=== PATIENT | female | born 1955 | race Caucasian/White ===

== ENCOUNTER → 2018-02-19 10:36 | Outpatient (CLI) | payer BC, SELFPAY ==
--- NOTE | 2018-02-19 10:38 | BI_ITS ---
MAMMOGRAPHY - BILATERAL SCREENING REASON FOR EXAM: Female, 62 years old. Routine annual screening examination. PERTINENT HISTORY: Sister with breast cancer. Aunt with breast cancer. Remote right excisional breast biopsy. Occasional left lateral breast tenderness. TECHNIQUE: Digital bilateral breast dayanara (3D mammographic acquisition) in the CC and MLO projections. 2-D mediolateral oblique (MLO) and craniocaudad (CC) views of both breasts were obtained. CAD: Full Field Digital Mammography with Computer Added Detection was performed. COMPARISON: Comparison is made with prior study dated January 29, 2017 and January 28, 2016. FINDINGS: Breast Composition: There are scattered areas of fibroglandular density. There are no dominant masses or suspicious calcifications. No other significant abnormalities are identified. There has been no significant change since the prior study. BI/SCREENING MAMM (CAD), BILAT IMPRESSION: Stable bilateral screening mammogram. Yearly follow-up mammogram recommended. (A) ASSESSMENT CATEGORY: BIRADS Category 2: Benign. A letter regarding these results will be sent to the patient by the facility within 30 days. Approximately 10% of breast cancers are not detected by mammography. A normal mammogram should not delay biopsy of a clinically suspicious abnormality. [id number] Electronically Signed: Cliff Pollard MD at 13:43 EDT Tel [phone], Service support ,
== END ==
PROVIDERS: Family Provider Family Medicine; PCP Family Medicine; Visit Provider Family Medicine
DX: Z12.31 Encounter for screening mammogram for malignant neoplasm of breast (principal)
CPT/HCPCS: 77063; 77067

== ENCOUNTER → 2018-03-14 09:57 | Outpatient (CLI) | payer BC, SELFPAY ==
[2018-03-14 12:15] LABS: Anion Gap 8 (5-15); BUN 12 mg/dL (7-18); BUN/Creat Ratio 14.3 RATIO (10-20); Calcium,Total 8.8 mg/dL (8.5-10.1); Chloride 108 mmol/L (98-107); Cholesterol 151 mg/dL (200); Creatinine, Serum 0.84 mg/dL (0.55-1.02); EST Glomerular Filtration Rate 73 mL/min (>60); Est Glom Filt Rate - Afr Amer 88 mL/min (>60); Glucose 94 mg/dL (74-106); High Density Lipoprotein 57 mg/dL; Potassium 3.8 mmol/L (3.5-5.1); Sodium Level 143 mmol/L (136-145); Triglycerides 94 mg/dL; Very Low Density Lipoprotein 19 mg/dL (5-40)
== END ==
PROVIDERS: Family Provider Family Medicine; PCP Family Medicine; Visit Provider Family Medicine
DX: I10 Essential (primary) hypertension (principal); E78.00 Pure hypercholesterolemia, unspecified
CPT/HCPCS: 36415; 80048; 80061

== ENCOUNTER → 2019-02-19 12:11 | Outpatient (CLI) | payer BC, SELFPAY ==
[2019-02-19 14:54] LABS: Absolute Lymphocyte Count 1.94 X10^3/uL (0.83-4.51); Absolute Neutrophil Count 2.3 X10^3/uL (2.0-7.7); Basophil# 0.05 X10^3/uL; Eosinophil# 0.19 X10^3/uL; Hemoglobin 15.1 g/dL (12.0-15.0); Lymphocyte # 1.94 X10^3/ul (4.0); Lymphocyte % 40.6 % (19-41); Mean Corp Hgb Conc 33.6 g/dL (32-36); Mean Corpuscular Hgb 32.3 pg (27.0-32.0); Mean Corpuscular Volume 96.4 fL (81-99); Mean Platelet Vol. 11.2 fl (6.2-12.0); Monocyte# 0.34 X10^3/uL; Monocyte% 7.1 % (0-10); NRBC Flagged by Analyzer 0 % (0-5); Neutrophil # 2.25 X10^3/uL (2.7-7.7); Neutrophil % 47.1 % (47-70); Platelet Count 213 K/mm3 (150-450); RBC Distribution Width CV 12.8 % (11.6-14.6); RBC Distribution Width SD 45.1 fl (35.1-43.9); Red Blood Count 4.67 M/mm3 (4.2-5.4); White Blood Count 4.8 K/mm3 (4.4-11.0)
[2019-02-19 15:14] LABS: Vitamin D,25 Hydroxy 26.6 ng/mL (29.95-100.01)
[2019-02-19 15:17] LABS: Anion Gap 7 (5-15); BUN 11 mg/dL (7-18); BUN/Creat Ratio 13.8 RATIO (10-20); Calcium,Total 8.8 mg/dL (8.5-10.1); Chloride 109 mmol/L (98-107); Cholesterol 144 mg/dL (200); EST Glomerular Filtration Rate 77 mL/min (>60); Est Glom Filt Rate - Afr Amer 93 mL/min (>60); Glucose 90 mg/dL (74-106); High Density Lipoprotein 58 mg/dL; Sodium Level 144 mmol/L (136-145); Thyroid Stim Hormone (TSH) 2.27 uIU/mL (0.358-3.74); Triglycerides 69 mg/dL; Very Low Density Lipoprotein 14 mg/dL (5-40)
== END ==
PROVIDERS: Family Provider Family Medicine; PCP Family Medicine; Visit Provider Family Medicine
DX: I10 Essential (primary) hypertension (principal); R53.83 Other fatigue; I67.9 Cerebrovascular disease, unspecified; M85.80 Other specified disorders of bone density and structure, unspecified site
CPT/HCPCS: 36415; 80048; 80061; 82306; 84443; 85025

== ENCOUNTER → 2019-03-11 12:23 | Outpatient (CLI) | payer BC, SELFPAY ==
--- NOTE | 2019-03-11 12:26 | BI_ITS ---
MAMMOGRAPHY - BILATERAL SCREENING 3-D TOMOSYNTHESIS REASON FOR EXAM: Female, 63 years old. Bilateral Screening 3-D tomosynthesis PERTINENT HISTORY: Sister and maternal aunt with breast cancer.. TECHNIQUE: 2-D mammograms and 3-D Tomosynthesis of the breast (s) were performed. CAD was performed. COMPARISON: 02/19/2018, 01/29/2017. FINDINGS: The breast composition is composed of scattered fibroglandular density. Scattered benign calcifications are seen. No dense spiculated masses or suspicious microcalcifications are identified. No architectural distortion is identified. There is no skin thickening or retraction. There has been no significant change since the prior study. BI/SCREEN MAMM (CAD) W/PER BILAT IMPRESSION: No mammographic signs of malignancy. Routine yearly mammograms recommended. ASSESSMENT CATEGORY: BIRADS Category 2: Benign. A letter regarding these results will be sent to the patient by the facility within 30 days. FOLLOW UP RECOMMENDATION: Yearly follow up mammogram recommended. (A) Approximately 10% of breast cancers are not detected by mammography. A normal mammogram should not delay biopsy of a clinically suspicious abnormality. Electronically Signed: Lexx Apple MD at 15:27 EDT Tel [phone], Service support ,
== END ==
PROVIDERS: Family Provider Family Medicine; PCP Family Medicine; Referring Provider Family Medicine; Visit Provider Family Medicine
DX: Z12.31 Encounter for screening mammogram for malignant neoplasm of breast (principal); M85.80 Other specified disorders of bone density and structure, unspecified site; Z80.3 Family history of malignant neoplasm of breast
CPT/HCPCS: 77063; 77067

== ENCOUNTER → 2019-03-19 09:56 | Outpatient (CLI) | payer BC, SELFPAY ==
--- NOTE | 2019-03-19 10:03 | BD_ITS ---
STUDY: DUAL ENERGY X-RAY ABSORPTIOMETRY / DXA REASON FOR EXAM: Female, 63 years old. The patient is postmenopausal. Loss of height. TECHNIQUE: Bone Mineral Density (BMD) measurements of lumbar spine and bilateral hips were obtained. COMPARISON: Comparison is made with prior study dated December 31, 2014. FINDINGS: Lumbar Spine (L1-L4): g/cm2 (1.051) / T-score (-1.1) / Z-score (0.4) Findings are suggestive of osteopenia with a low fracture risk. Left Femur Total: g/cm2 (0.817) / T-score (-1.5) / Z-score (-0.4) Left Femoral Neck: g/cm2 (0.749) / T-score (-2.1) / Z-score (-0.7) Right Femur Total: g/cm2 (0.825) / T-score (-1.5) / Z-score (-0.4) Right Femoral Neck: g/cm2 (0.756) / T-score (-2.0) / Z-score (-0.7) The T-Scores on the most recent prior examination were: Lumbar Spine (L1-L4): There has been improvement of bone density since the previous examination. Left Femur Total: which represents an improvement of 0.1%. Right Femur Total: which represents a worsening of 4.4%. BD/Dexa Bone Density Study IMPRESSION: The patient is considered osteopenic as outlined below according to World [place] Organization (WHO) criteria with a moderate fracture risk. There has been improvement of bone density since the previous examination. Reference Information: The T-score is the number of standard deviations above or below the standard which is normal for young adults at their peak bone mineral density. The World Health Organization (WHO) interprets the T-scores as follows: Above -1 Normal bone density Between -1 and -2.5 Osteopenia Equal to / or below -2.5 Osteoporosis As a practical clinical guideline, osteopenia may be graded as follows: Mild -1 through -1.5 Moderate -1.6 through -2.0 Severe -2.1 through -2.4 The Z-score is the number of standard deviations above or below age-matched controls. A Z-score of less than -1.5 would be considered abnormal. References: 1. NIH Osteoporosis and Related Bone Diseases http://www.osteo.org 2. International Society for Clinical Densitometry http://www.iscd.org 3. National Osteoporosis Foundation http://www.nof.org Electronically Signed: Cliff Pollard, at 15:24 EDT , Service support ,
== END ==
PROVIDERS: Family Provider Family Medicine; PCP Family Medicine; Referring Provider Family Medicine; Visit Provider Family Medicine
DX: M85.80 Other specified disorders of bone density and structure, unspecified site (principal)
CPT/HCPCS: 77080

== ENCOUNTER → 2020-02-03 10:28 | Outpatient (CLI) | payer BC, SELFPAY ==
[2020-02-03 13:21] LABS: Vitamin D,25 Hydroxy 35.5 ng/mL
[2020-02-03 13:36] LABS: Anion Gap 7 (5-15); BUN 12 mg/dL (7-18); BUN/Creat Ratio 16.2 RATIO (10-20); Calcium,Total 8.5 mg/dL (8.5-10.1); Chloride 106 mmol/L (98-107); Cholesterol 155 mg/dL (200); Creatinine, Serum 0.74 mg/dL (0.55-1.02); EST Glomerular Filtration Rate 84 mL/min (>60); Est Glom Filt Rate - Afr Amer 102 mL/min (>60); Glucose 82 mg/dL (74-106); High Density Lipoprotein 53 mg/dL; Potassium 3.5 mmol/L (3.5-5.1); Sodium Level 141 mmol/L (136-145); Triglycerides 82 mg/dL; Very Low Density Lipoprotein 16 mg/dL (5-40)
== END ==
PROVIDERS: PCP Family Medicine; Referring Provider Family Medicine; Visit Provider Family Medicine
DX: E55.9 Vitamin D deficiency, unspecified (principal); I10 Essential (primary) hypertension
CPT/HCPCS: 36415; 80048; 80061; 82306

== ENCOUNTER → 2020-04-02 10:02 | Outpatient (CLI) | payer BC, SELFPAY ==
--- NOTE | 2020-04-02 10:47 | BI_ITS ---
MAMMOGRAPHY - BILATERAL SCREENING REASON FOR EXAM: Female, 64 years old. Routine annual screening examination. PERTINENT HISTORY: Sister with breast cancer. Aunt with breast cancer. TECHNIQUE: Digital bilateral breast per (3D mammographic acquisition) in the CC and MLO projections. 2-D mediolateral oblique (MLO) and craniocaudad (CC) views of both breasts were obtained. CAD: Full Field Digital Mammography with Computer Added Detection was performed. COMPARISON: Comparison is made with prior examination dated 03/11/2019 and 02/19/2018. FINDINGS: Breast Composition: There are scattered areas of fibroglandular density. There are no dominant masses or suspicious calcifications. Stable small benign appearing bilateral axillary lymph nodes. No other significant abnormalities are identified. There has been no significant change since the prior study. BI/SCREEN MAMM (CAD) W/PER BILAT IMPRESSION: Stable bilateral screening mammogram. Yearly follow-up mammogram recommended. (A) ASSESSMENT CATEGORY: BIRADS Category 2: Benign. A letter regarding these results will be sent to the patient by the facility within 30 days. Approximately 10% of breast cancers are not detected by mammography. A normal mammogram should not delay biopsy of a clinically suspicious abnormality. [id number] Electronically Signed: Cliff Pollard, at 11:58 EDT , Service support ,
== END ==
PROVIDERS: PCP Family Medicine; Referring Provider Family Medicine; Visit Provider Family Medicine
DX: Z12.31 Encounter for screening mammogram for malignant neoplasm of breast (principal); Z80.3 Family history of malignant neoplasm of breast
CPT/HCPCS: 77063; 77067

== ENCOUNTER 2020-05-02 19:17 | Observation (INO) | payer BC, SELFPAY ==
[2020-05-02 19:18] VITALS: BP 154/103; PULSE 51; RESP 18; TEMP 36.2; O2SAT 96; BMI 27.7
--- NOTE | 2020-05-02 19:27 | EKG12_ITS ---
Test Reason : CP Blood Pressure : / mmHG Vent. Rate : 051 BPM Atrial Rate : 051 BPM P-R Int : 156 ms QRS Dur : 082 ms QT Int : 466 ms P-R-T Axes : 040 -14 -15 degrees QTc Int : [address] & T wave abnormality, consider anterior ischemia Abnormal ECG Confirmed by CHERI ROCHA, GRACIELA ([id number]), digital editor DEYSI CHAUDHARY ([id number]) on 05/04/2020 12:54:46 PM Referred By: MARTA Confirmed By:GRACIELA ALONZO MD
--- NOTE | 2020-05-02 19:27 | RAD_ITS ---
STUDY: X-RAY CHEST REASON FOR EXAM: Female, 64 years old. Chest pain radiating through shoulders as well, started today. TECHNIQUE: Single AP portable view of the chest. 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 The lungs are clear and expanded. There is no demonstrated pleural abnormality. Normal size heart. Normal mediastinum and elizabeth. Normal visualized pulmonary arteries. There are calcified plaques of the aortic arch. Normal visualized thoracic spine. Normal visualized ribs, clavicles, and shoulders. There is no demonstrated abnormality of the visualized soft tissue structures of the upper abdomen. RAD/Chest 1 View (Portable) IMPRESSION: Calcified plaques of the aortic arch. No acute cardiopulmonary disease process is seen. Electronically Signed: Maicol Carlos MD at 19:58 EDT , Service support ,
--- NOTE | 2020-05-02 19:29 | ED.VIS.GEN ---
History of Present Illness Chief Complaint: Chest Pain Informant: Patient Onset: Today Context: Sudden Onset Current Severity: Mild Maximum Severity: Severe Narrative: Patient presents secondary to chest pain. She states she was cooking dinner tonight when she got rather sudden onset of substernal sharp chest pain straight through to her back. She went and sat down and drank a glass of water and symptoms seem to significantly improved. She reports very mild pain at this time. She denies shortness of breath. She did reportedly break out in a sweat, but family does state it was very damage prevention coordinator there as well. Patient denies significant cardiac history. She does report having a cardiac cath several years ago that was unremarkable. - Past Medical History (1) CVA (cerebral vascular accident) Status: Chronic Past Medical History - Allergies and Home Meds Allergies/Adverse Reactions: Allergies No Known Allergies Allergy (Verified 05/02/20 19:18) Primary Care Physician: Kayode Lin MD [Primary Care Provider] - Lives: Spouse/ Significant Other Smoking Status: Never smoker Review of Systems General: Denies: Chills, Fever Eyes: Denies: Visual changes - bilaterally ENT: Denies: Bilateral ear pain Cardiovascular: Reports: Chest pain Respiratory: Denies: Dyspnea, Cough Gastrointestinal: Denies: Abdominal pain, Nausea, Vomiting, Diarrhea Musculoskeletal: Denies: Swelling, Extremity Pain Skin: Denies: Rash Neurological: Denies: Headache Hematologic: Denies: Easy bruising, Easy bleeding Allergy: Denies: Uticaria Physical Exam Vital Signs/Narrative: Vital Signs Temp Pulse Resp BP Pulse Ox 05/02/20 19:18 97.1 F L 51 L 18 154/103 H 96 Inital Vital Signs reviewed: Yes General: Well nourished, Well developed Head: Normocephalic ENT: Moist mucous membranes Neck: Supple Cardiovascular: Regular rhythm, Bradycardia Respiratory: No distress, CTA bilaterally Abdomen: Soft, Nontender, Hypoactive bowel sounds Extremities: Nontender, No edema Skin: Normal color Neurological: Alert, Oriented x3 Psychological: Normal affect Diagnostic/Tx/Re-eval Impressions Chest X-Ray 05/02/20 19:27 IMPRESSION: Calcified plaques of the aortic arch. No acute cardiopulmonary disease process is seen. Electronically Signed: Maicol Carlos MD at 19:58 EDT , Service support , Chest CTA 05/02/20 20:38 IMPRESSION: 1. No pulmonary embolism 2. No acute vascular thoracic pathology. Electronically Signed: Raysa Palacio, at 21:24 EDT Tel , Service support , 05/02/20 19:27 Chest 1 View (Portable) [RAD] Stat 05/02/20 20:38 CTA Chest W/WO Contrast [CT] Stat Laboratory Results 05/02/20 05/02/20 05/02/20 15:25 15:25 15:25 WBC 8.7 RBC 4.51 Hgb 14.5 Hct 44.1 MCV 97.8 MCH 32.2 H MCHC 32.9 RDW Std Deviation 46.6 H RDW Coeff of Radha 13.1 Plt Count 233 MPV 10.4 Immature Gran % (Auto) 0.300 Neut % (Auto) 55.3 Lymph % (Auto) 32.3 [place]ke % (Auto) 7.9 Eos % (Auto) 3.7 Baso % (Auto) 0.5 Absolute Neuts (auto) 4.8 Absolute Lymphs (auto) 2.82 Nucleated RBC % 0 D-Dimer Quant (PE/DVT) 1.01 H* Sodium 139 Potassium 3.6 Chloride 108 H Carbon Dioxide 25.0 Anion Gap 6 BUN 16 Creatinine 0.85 Estim Creat Clear Calc 55.31 Est GFR (MDRD) Af Amer 87 Est GFR (MDRD) Non-Af 72 BUN/Creatinine Ratio 18.9 Glucose 115 H Calcium 8.3 L Troponin I < 0.015 - EKG Initial EKG Interpretation: Sinus Bradycardia - Sinus bradycardia with anterior T inversions. This is unchanged when compared to prior study from November 2006. - Medical Decision Making Patient did take full size aspirin prior to arrival. Test results discussed with patient and at bedside. She does have significant family history of cardiac disease. I will recommend observation overnight for cycling of enzymes and possible stress test. ED Disposition - Plan for ED Patient: Disposition: Acute Care Hospital [facility] Diagnosis: Chest pain Referrals: Kayode Lin MD [Primary Care Provider] -
[2020-05-02] MEDS: 0.9% Normal Saline 1,000 ML 150 ML IV (19:50)
[2020-05-02 19:54] LABS: Absolute Lymphocyte Count 2.82 X10^3/uL (0.83-4.51); Absolute Neutrophil Count 4.8 X10^3/uL (2.0-7.7); Basophil# 0.04 X10^3/uL; Basophil% 0.5 % (0-1); Eosinophil# 0.32 X10^3/uL; Eosinophils% 3.7 % (0-5); Hematocrit 44.1 % (37-47); Hemoglobin 14.5 g/dL (12.0-15.0); Lymphocyte # 2.82 X10^3/ul (4.0); Lymphocyte % 32.3 % (19-41); Mean Corp Hgb Conc 32.9 g/dL (32-36); Mean Corpuscular Hgb 32.2 pg (27.0-32.0); Mean Corpuscular Volume 97.8 fL (81-99); Mean Platelet Vol. 10.4 fl (6.2-12.0); Monocyte# 0.69 X10^3/uL; Monocyte% 7.9 % (0-10); NRBC Flagged by Analyzer 0 % (0-5); Neutrophil # 4.83 X10^3/uL (2.7-7.7); Neutrophil % 55.3 % (47-70); Platelet Count 233 K/mm3 (150-450); RBC Distribution Width CV 13.1 % (11.6-14.6); RBC Distribution Width SD 46.6 fl (35.1-43.9); Red Blood Count 4.51 M/mm3 (4.2-5.4); White Blood Count 8.7 K/mm3 (4.4-11.0)
[2020-05-02 20:04] LABS: Anion Gap 6 (5-15); BUN 16 mg/dL (7-18); BUN/Creat Ratio 18.9 RATIO (10-20); Calcium,Total 8.3 mg/dL (8.5-10.1); Chloride 108 mmol/L (98-107); Creatinine, Serum 0.85 mg/dL (0.55-1.02); EST Glomerular Filtration Rate 72 mL/min (>60); Est Glom Filt Rate - Afr Amer 87 mL/min (>60); Estimated Creatinine Clearance 55.31 ml/min; Glucose 115 mg/dL (74-106); Potassium 3.6 mmol/L (3.5-5.1); Sodium Level 139 mmol/L (136-145)
[2020-05-02 20:29] LABS: D-Dimer Quantitative (DVT/PE) 1.01 FEU/ug/m (0.27-0.49)
--- NOTE | 2020-05-02 20:38 | CT_ITS ---
STUDY: CTA CHEST REASON FOR EXAM: Female, 64 years old. Chest pain asthma RADIATION DOSAGE (If Supplied By Facility): CTDIvol = ( 9.91 ) mGy, DLP = ( 381.88 ) mGycm TECHNIQUE: The examination was performed with the intravenous administration of IV 100mL Isovue-370. Post-processing of the angiographic images was performed, with multiplanar reformation and 3D reconstruction. Individualized dose optimization techniques were used for this CT. COMPARISON: None. FINDINGS: There is no acute or chronic pulmonary embolism. Aorta is of normal caliber. Lungs are clear. There is no pneumothorax, pulmonary edema or pleural effusions. Mediastinal contents are normal. Osseous structures are intact. Abdominal structures are unremarkable. CT/CTA Chest W/WO Contrast IMPRESSION: 1. No pulmonary embolism 2. No acute vascular thoracic pathology. Electronically Signed: Raysa Palacio, at 21:24 EDT Tel , Service support ,
--- NOTE | 2020-05-02 22:06 | PCM.HP.STD ---
Problem List (1) Chest pain Status: Acute Qualifiers: Chest pain type: unspecified Qualified Code(s): R07.9 - Chest pain, unspecified (2) HTN (hypertension) Status: Chronic Qualifiers: Hypertension type: essential hypertension Qualified Code(s): I10 - Essential (primary) hypertension (3) Anxiety and depression Status: Chronic (4) GERD (gastroesophageal reflux disease) Status: Chronic Qualifiers: Esophagitis presence: esophagitis presence not specified Qualified Code(s): K21.9 - Gastro-esophageal reflux disease without esophagitis (5) Asthma Status: Chronic Qualifiers: Asthma severity: unspecified severity Asthma persistence: unspecified Asthma complication type: unspecified Qualified Code(s): J45.909 - Unspecified asthma, uncomplicated (6) CVA (cerebral vascular accident) Status: Chronic Qualifiers: CVA mechanism: unspecified Qualified Code(s): I63.9 - Cerebral infarction, unspecified (7) Hearing loss of both ears Status: Chronic Qualifiers: Hearing loss type: unspecified Qualified Code(s): H91.93 - Unspecified hearing loss, bilateral (8) Speech abnormality Status: Chronic Qualifiers: Speech disturbance type: unspecified speech disturbance Qualified Code(s): R47.9 - Unspecified speech disturbances History of Present Illness Date of Admission: 05/02/20 Chief Complaint: Chest pain The patient is a 64 y/o F w/ PMHx: Asthma, Hx CVA without deficits, Anxiety and Depression, HTN, HLD, GERD who presents to the [facility] ED on 05/02/20 with history of onset severe, stabbing like sensation to her substernal chest and between her shoulder blades ~ 45 minutes [employer] in the ED with some associated diaphoresis but improved following rest and intake of water. She noted that she been at the stove making dinner with sudden onset of the pain and described it as both sharp stabbing and pressure-like. She did have a recent asthma attack approximately 2 weeks prior to current presentation and noted that she finished her last dose of her prednisone taper on day of ED presentation. Patient notes minimal pain initially upon arrival and now back to baseline without any pain aside from very minimal aching in her back between her shoulder blades. She had remote cardiac catheterization with no disease noted. Work-up in the ED included T 97.1, heart rate 51, BP 154/103, respiratory rate 18, 96% on room air, CBC with WBC 8.7, hemoglobin 14.5, platelet 233 without shift, d-dimer 1.01, BMP with chloride 108, glucose 115, troponin less than 0.015, chest x-ray with calcified plaques of the aortic arch with no acute cardiopulmonary findings otherwise, CTPA with no evidence pulmonary embolism and no acute vascular thoracic pathology, EKG w/ sinus bradycardia with anterior T inversions unchanged from November 2006. In the ED patient administered normal saline. Patient did take a full-strength aspirin prior to ED presentation. Past Medical History Past Medical History (Chronic Problems): Chronic Problems CVA (cerebral vascular accident) (Chronic) HTN (hypertension) (Chronic) Anxiety and depression (Chronic) GERD (gastroesophageal reflux disease) (Chronic) Asthma (Chronic) Hearing loss of both ears (Chronic) Speech abnormality (Chronic) Allergies No Known Allergies Allergy (Verified 05/02/20 19:18) Home Medications: Ambulatory Orders Medication Instructions Recorded Amlodipine [Norvasc] 5 mg PO DAILY 05/02/20 Aspirin 325 mg PO DAILY 05/02/20 Atorvastatin Calcium [Lipitor] 20 mg PO QHS 05/02/20 Duloxetine HCl 60 mg PO DAILY 05/02/20 Metoprolol Tartrate 25 mg PO BID 05/02/20 Pantoprazole Sodium 40 mg PO DAILY 05/02/20 Surgical History: - - Breast biopsy. Psychiatric History: No pertinent psych hx TELEPHONE TRIAGE NURSE History: No pertinent TELEPHONE TRIAGE NURSE history Lives: Spouse/ Significant Other Smoking Status: Never smoker Tobacco Use: Non-smoker Alcohol: Occasional Drugs: None - *Family History Maternal History Items: High Cholesterol, Heart Disease, Hypertension Paternal History Items: - - Father with a history of inclusion body myositis as well as thyroid cancer. Sibling History Items: - - Patient notes several brothers and sisters with her youngest brother having already required PCI for coronary disease and 2 sisters 1 of whom has breast cancer and the other who has thyroid cancer. Review of Systems Constitutional: Reports: Fatigue. Denies: Anorexia, Chills, Fever, Malaise, Weakness, Weight Change HEENT: Denies: Head Aches, Sinus Congestion, Sinus Drainage Cardiovascular: Reports: Chest Pain, Chest Pressure. Denies: Chest Tightness, Heaviness, Light Headedness, Orthopnea, Palpitations, Syncope Respiratory: Reports: - - History of recent asthma attack 2 weeks earlier, resolved.. Denies: Cough, Shortness of Breath, Shortness of breath at rest, Shortness of breath upon exertion, Sputum production Gastrointestinal: Denies: Abdominal Pain, Nausea, Vomiting Genitourinary: Denies: Dysuria Musculoskeletal: Denies: Joint Pain, Joint Tenderness Skin: Denies: Rash, Wounds Neurological: Reports: - - History of prior CVA without deficits.. Denies: Focal weakness, Numbness, Tingling Psychiatric: Denies: Anxiety, Depression, Homicidal Ideations, Suicidal Ideations Endocrine: Reports: - - Diaphoresis. Hematologic/ Lymphatic: Denies: Easy Bruising, Easy Bleeding VTE Information - Inpt Only VTE Present on Admission: No VTE Mechan Device Prophylaxis: SCD's VTE Pharm Prophylaxis ordered?: Yes Patient Problems: Active and Suspected Problems Chest pain (Acute) Subjective: Patient seated upright in the ED bed, mildly fatigued appearance otherwise no acute distress, speech alteration secondary to hearing deficit with hearing aids in place. Objective: Physical Examination: General: awake, alert, oriented x 3 and cooperative, seated upright in the ED bed, no acute distress, discomfort nearly resolved. Skin: normal color, turgor, no icterus, cyanosis. HEENT: AT/NC, EOMI, PERRLA, MMM, bilateral hearing aids in place with speech alteration chronically, no carotid bruits or JVD noted. Lungs: CTA bilaterally, moderate effort, mild decrease BL bases, no rales, ronchi or wheezing. Heart: Mildly bradycardic with regular rhythm; no gallop, rub audible, no reproducible pain with palpation of the anterior chest or between the shoulder blades. Abdomen: soft, NTTP, ND, normal BS, no HSM. Extremities: no cyanosis, clubbing, or edema. Neurological: patient awake, alert, oriented x 3; cognitive function intact; pupils equally reactive to light and accomodation; cranial nerves II-XII grossly normal, moving all 4 extremities, no focal deficits, strength preserved. Psychiatric: affect appears mildly fatigued otherwise normal, no acute evidence of depressive or anxiety feelings. - Physical Exam Vitals/I&O's: Vital Signs Temp Pulse Resp BP Pulse Ox 97.1 F L 51 L 18 154/103 H 96 05/02/20 19:18 05/02/20 19:18 05/02/20 19:18 05/02/20 19:18 05/02/20 19:18 Oxygen Delivery Method Room Air Weight: 156 lb 8.451 oz Body Mass Index (BMI) 27.7 Laboratory Results 05/02/20 15:25: WBC 8.7, RBC 4.51, Hgb 14.5, Hct 44.1, MCV 97.8, MCH 32.2 H, MCHC 32.9, RDW Std Deviation 46.6 H, RDW Coeff of Radha 13.1, Plt Count 233, MPV 10.4, Immature Gran % (Auto) 0.300, Neut % (Auto) 55.3, Lymph % (Auto) 32.3, [place] % (Auto) 7.9, Eos % (Auto) 3.7, Baso % (Auto) 0.5, Absolute Neuts (auto) 4.8, Absolute Lymphs (auto) 2.82, Nucleated RBC % 0 05/02/20 15:25: Sodium 139, Potassium 3.6, Chloride 108 H, Carbon Dioxide 25.0, Anion Gap 6, BUN 16, Creatinine 0.85, Estim Creat Clear Calc 55.31, Est GFR (MDRD) Af Amer 87, Est GFR (MDRD) Non-Af 72, BUN/Creatinine Ratio 18.9, Glucose 115 H, Calcium 8.3 L, Troponin I < 0.015 05/02/20 15:25: D-Dimer Quant (PE/DVT) 1.01 H* Current Medications Sodium Chloride () 1,000 mls @ 150 mls/hr IV .[id number] [facility] Last Admin: 05/02/20 19:50 Dose: 150 mls/hr Documented by: Assessment/Plan All Active Problems Chest pain (Acute) The patient is a 64 y/o F w/ PMHx: Hx CVA, Anxiety and Depression, HTN, HLD, GERD who presents to the [facility] ED on 05/02/20 with history of onset severe, stabbing like sensation to her substernal chest and between her shoulder blades ~ 45 minutes [employer] in the ED with some associated diaphoresis but improved following rest and intake of water. 1. Chest Pain: EKG w/ sinus bradycardia with anterior T inversions unchanged from November 2006, CXR w/ no acute cardiopulmonary findings with follow-up CTPA unremarkable, initial trop normal x1. Will admit to PCU, place on a monitored bed to assure no acute myocardial infarction with serial cardiac enzymes and EKGs. If repeat cardiac enzymes and EKG remain unremarkable will pursue a.m. cardiac stress testing. FLP in AM. Mag pending. ASA, NG, morphine. 2. Hypertension: Continue home regimen including metoprolol, Norvasc, PRN hydralazine. 3. Hyperlipidemia: We will continue home statin therapy, FLP in AM. 4. Anxiety and depression: We will continue patient home duloxetine regimen. 5. History CVA: No deficits associated, we will continue patient aspirin, statin, hypertensive regimen. 6. GERD: We will continue patient home PPI. 7. Asthma: PRN albuterol, encourage head of bed, I-S, recent exacerbation with prednisone taper recently finished on day of ED presentation. 8. DVT prophylaxis: SCDs, Lovenox. OBSV E&M: [id number] Initial observation care L3
[2020-05-02 22:08] VITALS: BP 150/88; PULSE 50; RESP 16; O2SAT 94
[2020-05-02 22:41] VITALS: BP 149/94; PULSE 50; RESP 14; TEMP 36.2; O2SAT 96
[2020-05-02 23:06] VITALS: PULSE 53; BMI 26.5; BMI 26.6
--- NOTE | 2020-05-02 23:12 | EKG12_ITS ---
Test Reason : CP Blood Pressure : / mmHG Vent. Rate : 048 BPM Atrial Rate : 048 BPM P-R Int : 154 ms QRS Dur : 084 ms QT Int : 490 ms P-R-T Axes : 035 -18 005 degrees QTc Int : 437 ms Sinus bradycardia Non-specific ST & T wave changes Abnormal ECG When compared with ECG of 05-DEC-2006 15:50, No significant change was found Confirmed by ROBIN ROCHA, CHESTER ([id number]), editorial project manager RICO MARQUEZ ([id number]) on 05/05/2020 11:29:05 AM Referred By: VIOLETA CARLTON Confirmed By:UZMA KELLY MD
[2020-05-02 23:20] VITALS: BP 172/84; PULSE 56; RESP 18; TEMP 36.8; O2SAT 96
[2020-05-03] VITALS (8 sets, daily range): BP systolic 131; BP diastolic 72–82; PULSE 54–69; RESP 14–18; TEMP 36.6–36.7; O2SAT 92–96
[2020-05-03] MEDS: 0.9% Normal Saline 1,000 ML 100 ML IV
[2020-05-03 00:03] LABS: Magnesium 2.1 mg/dL (1.6-2.6)
[2020-05-03] MEDS: Aspirin 325 MG Tablet PO (05:35)
--- NOTE | 2020-05-03 05:55 | EKG12_ITS ---
Test Reason : AM EKG Blood Pressure : / mmHG Vent. Rate : 052 BPM Atrial Rate : 052 BPM P-R Int : 156 ms QRS Dur : 086 ms QT Int : 478 ms P-R-T Axes : 034 -20 -04 degrees QTc Int : 444 ms Sinus bradycardia Non-specific ST & T wave changes Abnormal ECG When compared with ECG of 02-MAY-2020 23:53, MANUAL COMPARISON REQUIRED, DATA IS UNCONFIRMED Confirmed by ROBIN ROCHA, CHESTER ([id number]), film editor RICO MARQUEZ ([id number]) on 05/05/2020 11:21:48 AM Referred By: DR PEREZ Confirmed By:UZMA KELLY MD
[2020-05-03 06:04] LABS: Absolute Lymphocyte Count 1.98 X10^3/uL (0.83-4.51); Absolute Neutrophil Count 4.3 X10^3/uL (2.0-7.7); Basophil# 0.03 X10^3/uL; Basophil% 0.4 % (0-1); Eosinophil# 0.29 X10^3/uL; Eosinophils% 4.1 % (0-5); Hematocrit 43.3 % (37-47); Hemoglobin 14.1 g/dL (12.0-15.0); Lymphocyte # 1.98 X10^3/ul (4.0); Lymphocyte % 27.7 % (19-41); Mean Corp Hgb Conc 32.6 g/dL (32-36); Mean Corpuscular Hgb 31.5 pg (27.0-32.0); Mean Corpuscular Volume 96.7 fL (81-99); Mean Platelet Vol. 10.3 fl (6.2-12.0); Monocyte# 0.56 X10^3/uL; Monocyte% 7.8 % (0-10); NRBC Flagged by Analyzer 0 % (0-5); Neutrophil # 4.27 X10^3/uL (2.7-7.7); Neutrophil % 59.6 % (47-70); Platelet Count 206 K/mm3 (150-450); RBC Distribution Width CV 13.2 % (11.6-14.6); RBC Distribution Width SD 47.3 fl (35.1-43.9); Red Blood Count 4.48 M/mm3 (4.2-5.4); White Blood Count 7.2 K/mm3 (4.4-11.0)
[2020-05-03 06:33] LABS: ALB/GLOB Ratio 1.1 RATIO (0.9-2.4); AST(SGOT) 15 U/L (15-37); Alanine Aminotransfer ALT/SGPT 19 U/L (13-56); Albumin, Serum 3.2 g/dL (3.2-5.0); Alkaline Phosphatase 54 U/L (45-117); Anion Gap 6 (5-15); BUN 9 mg/dL (7-18); Chloride 109 mmol/L (98-107); Cholesterol 158 mg/dL (200); Creatinine, Serum 0.64 mg/dL (0.55-1.02); EST Glomerular Filtration Rate 99 mL/min (>60); Est Glom Filt Rate - Afr Amer 119 mL/min (>60); Estimated Creatinine Clearance 73.46 ml/min; Globulin 2.9 g/dL (2.2-4.2); Glucose 88 mg/dL (74-106); High Density Lipoprotein 65 mg/dL; Potassium 3.5 mmol/L (3.5-5.1); Protein, Total 6.1 g/dL (6.4-8.2); Sodium Level 140 mmol/L (136-145); Triglycerides 70 mg/dL; Very Low Density Lipoprotein 14 mg/dL (5-40)
[2020-05-03] MEDS: amLODIPine 5 MG Tablet PO (10:35)
[2020-05-03] MEDS: Metoprolol Tartrate 25 MG Tablet PO (10:35)
[2020-05-03] MEDS: Pantoprazole Sodium 40 MG Tablet PO (10:35)
[2020-05-03] MEDS: DULoxetine Hcl 60 MG Capsule PO (10:35)
--- NOTE | 2020-05-03 11:56 | DCINST_ITS ---
- Discharge Diagnoses Current Active Problems: Current Active and Chronic Problems Chest pain (Acute) HTN (hypertension) (Chronic) Anxiety and depression (Chronic) GERD (gastroesophageal reflux disease) (Chronic) Asthma (Chronic) Hearing loss of both ears (Chronic) Speech abnormality (Chronic) You will use the following diet at home:: Cardiac Your food should be the consistency of: Regular Discharge Activity: Return to Normal Activity Weight Bearing Status: Weight bearing as tolerated Call your doctor if you observe: Fever of 101 or Higher, Numbness or Tingling, Change in Color, Inability to urinate, Inability to have a bowel movement, Using more than one pad per hour, Shortness of breath, Dizziness, Fainting spells, Swelling in the ankles, Chest pain, Prolonged hiccoughing, Increased palpitations (irregular heartbeat), Calf discomfort, Uncontrolled pain Allergies/Adverse Reactions: Allergies No Known Allergies Allergy (Verified 05/02/20 19:18) Medications to take at Discharge Amlodipine [Norvasc] 5 mg PO DAILY 05/02/20 Aspirin 325 mg PO DAILY 05/02/20 Atorvastatin Calcium [Lipitor] 20 mg PO QHS 05/02/20 Duloxetine HCl 60 mg PO DAILY 05/02/20 Metoprolol Tartrate 25 mg PO BID 05/02/20 Pantoprazole Sodium 40 mg PO DAILY 05/02/20 Primary Care Physician: Kayode Lin MD [Primary Care Provider] - Please follow up with your Primary Care Physician in: IN 2 WEEKS Test Results: Test results from this visit will be discussed in further detail at your follow- up appointment, if applicable.
--- NOTE | 2020-05-03 13:46 | STRESSREP_ITS ---
Stress Test Report Date: 05-03-2020 Procedure: Exercise tolerance test/imaging study Indications: Chest pain Consent: Per the patient Procedure: The patient exercised on a Mello protocol for 7 minutes and 13 seconds completing Stage II and 1 minute and 13 seconds of Stage III achieving a peak heart rate of 155 bpm (99% predicted maximal heart rate) with a peak blood pressure 150/90 mmHg and a peak MET capacity of 9 METs. The baseline ECG demonstrated sinus bradycardia; nonspecific T wave abnormality. The peak exercise ECG demonstrated no obvious ECG changes. There was a rare PVC during exercise and recovery. The functional capacity was considered average. There was vague interscapular discomfort during exercise with spontaneous resolution in recovery. The examination was discontinued secondary to dyspnea. Impression: 1. Technically adequate (percent predicted maximal heart rate greater than 85%) exercise tolerance test 2. Peak exercise ECG with no obvious ECG changes 3. There was a rare PVC during exercise and recovery 4. Nuclear images pending Myocardial perfusion imaging study: Technique: The patient was injected with 11.6 mCi of technetium 99m Cardiolite and subsequently rest SPECT Cardiolite nuclear imaging was obtained in the horizontal long, vertical long, and short axis views. The patient exercised on a Mello protocol for 7 minutes and 13 seconds completing Stage II and 1 minute and 13 seconds of Stage III achieving a peak heart rate of 155 bpm (99% predicted maximal heart rate) with a peak blood pressure 150/90 mmHg and a peak MET capacity of 9 METs. The patient was injected with 36.0 mCi of technetium 99m Cardiolite and subsequently stress SPECT Cardiolite nuclear imaging was obtained in the horizontal long, vertical long, and short axis views. A gated Cardiolite study at peak stress was obtained. Interpretation: Rest and stress SPECT Cardiolite nuclear imaging status post realignment, normal ization, and attenuation correction, demonstrates [the appearance of relative uniform tracer uptake and myocardial perfusion appearing within normal limits]. [There is end systolic thickening and brightening]. The gated Cardiolite study demonstrates [myocardial thickening and inward wall motion]. The reported LVEF is 70%. Impression: 1. Rest and stress SPECT Cardiolite nuclear imaging demonstrate [relative uniform tracer uptake and myocardial perfusion appearing within normal limits]. 2. The gated Cardiolite study reports an LVEF of 70%. This note was generated with [employer] software. It may contain incorrect words, spelling, and punctuation that were not noted in checking the note before signing.
--- NOTE | 2020-05-03 14:38 | PCM.DC.SUM ---
Discharge Date and Diagnosis - Problem List Patient Problems: Active and Suspected Problems Chest pain (Acute) Date of Admission: 05/02/20 Date of Discharge: 05/03/20 - Primary Discharge Diagnosis Acute Problems: Active Problems Chest pain (Acute) - Secondary Discharge Diagnosis Chronic Problems: Chronic Problems CVA (cerebral vascular accident) (Chronic) HTN (hypertension) (Chronic) Anxiety and depression (Chronic) GERD (gastroesophageal reflux disease) (Chronic) Asthma (Chronic) Hearing loss of both ears (Chronic) Speech abnormality (Chronic) Hospital Course and Treatment Imaging Results: 05/03/20 05:55 Nuclear Stress Test - Treadmil [NM] AM (NON MEDS) Summary of Care Provided: The patient is a 64 year old F with history of chronic stable asthma came to ER with chest pain, midsternal with radiation to back for about 45 minutes. She had cardiac cath in remote past and was negative as per the patient. CTPA was negative for any evidence of pulmonary embolism or acute thoracic vessel pathology. Twelve-lead EKG sinus bradycardia with some T inversion in anterior leads, unchanged from November 2006. Patient is recovering from asthma exacerbation and had prednisone taper. She was admitted in PCU. Serial troponin enzymes are negative. Labs reviewed. K3.5 and 1K Dur 40 M EQ was given. Patient further had treadmill nuclear myocardial perfusion test and was negative for acute ischemia. I think, chest pain is mainly musculoskeletal in nature. hall monitor shows sinus rhythm. Rest of the comorbidities hypertension, dyslipidemia, anxiety and depression, GERD chronic stable asthma are well controlled. Fasting profile shows total cholesterol 158, TG 70, LDL 79 and HDL 65. Discharge medication reconciliation done. Discharge follow-up instructions completed. Discharge process discussed with the patient and all questions were answered to patient's satisfaction. Total time spent, exact 35 minutes on discharge meds reconciliation, examination, coordination of care with nurses and ancillary staff, review of imaging and blood test and discussion with the patient on follow-up instructions Patient Problems: Active and Suspected Problems Chest pain (Acute) Objective: Seen and examined. The patient is chest pain-free. No shortness of breath, dizziness or syncope. Patient has history of asthma. She denies recent acid reflux or heartburn although she has history of GERD. She further said she has been lifting her grandkids at home. Patient is non-smoker. At rate and blood pressure are controlled. Physical exam General: Alert, Oriented x3, Cooperative HEENT: Atraumatic, PERRLA, EOMI, Normocephalic Oral: No Gingival or Mucosal Lesions/ Ulcerations Neck: Supple, No JVD, Negative Carotid Bruits Lungs: Air entry equal in bilateral lung bases. No crepitation/rhonchi Cardiovascular: Regular rate, Regular Rhythm, Normal S1, Normal S2, No murmurs Abdomen: Bowel Sounds Present, Soft, Non Tender, Non-Distended : No renal angle tenderness. No suprapubic tenderness. Extremities: No edema, Capillary Refill Less than 3 Seconds Skin: No rashes, No breakdown Musculoskeletal: No Tenderness to Palpation of Joints or Extremities Neurological: Cranial nerves II-XII grossly intact, Deep Tendon Reflexes 2+/4 and Symmetrical, Neuro grossly intact Psych/Mental Status: Normal Affect, Appropriate. - Physical Exam Vitals/I&O's: Vital Signs Temp Pulse Resp BP Pulse Ox 97.9 F 69 18 131/82 H 92 05/03/20 10:30 05/03/20 10:35 05/03/20 10:30 05/03/20 10:35 05/03/20 10:30 Oxygen Delivery Method Room Air Weight: 149 lb 14.629 oz Body Mass Index (BMI) 26.5 Intake and Output for Last 24 Hours 05/01/20 05/02/20 05/03/20 23:59 23:59 23:59 Intake Total 475 / 475 941.67 / 941.67 Balance 475 / 475 941.67 / 941.67 Laboratory Results 05/02/20 15:25: WBC 8.7, RBC 4.51, Hgb 14.5, Hct 44.1, MCV 97.8, MCH 32.2 H, MCHC 32.9, RDW Std Deviation 46.6 H, RDW Coeff of Radha 13.1, Plt Count 233, MPV 10.4, Immature Gran % (Auto) 0.300, Neut % (Auto) 55.3, Lymph % (Auto) 32.3, Ashley % (Auto) 7.9, Eos % (Auto) 3.7, Baso % (Auto) 0.5, Absolute Neuts (auto) 4.8, Absolute Lymphs (auto) 2.82, Nucleated RBC % 0 05/02/20 15:25: Sodium 139, Potassium 3.6, Chloride 108 H, Carbon Dioxide 25.0, Anion Gap 6, BUN 16, Creatinine 0.85, Estim Creat Clear Calc 55.31, Est GFR (MDRD) Af Amer 87, Est GFR (MDRD) Non-Af 72, BUN/Creatinine Ratio 18.9, Glucose 115 H, Calcium 8.3 L, Troponin I < 0.015 05/02/20 15:25: D-Dimer Quant (PE/DVT) 1.01 H* 05/02/20 23:35: Magnesium 2.1, Troponin I < 0.015 05/03/20 02:09: Troponin I < 0.015 05/03/20 05:15: WBC 7.2, RBC 4.48, Hgb 14.1, Hct 43.3, MCV 96.7, MCH 31.5, MCHC 32.6, RDW Std Deviation 47.3 H, RDW Coeff of Radha 13.2, Plt Count 206, MPV 10.3, Immature Gran % (Auto) 0.400, Neut % (Auto) 59.6, Lymph % (Auto) 27.7, Ashley % (Auto) 7.8, Eos % (Auto) 4.1, Baso % (Auto) 0.4, Absolute Neuts (auto) 4.3, Absolute Lymphs (auto) 1.98, Nucleated RBC % 0 05/03/20 05:15: Sodium 140, Potassium 3.5, Chloride 109 H, Carbon Dioxide 25.0, Anion Gap 6, BUN 9, Creatinine 0.64, Estim Creat Clear Calc 73.46, Est GFR (MDRD) Af Amer 119, Est GFR (MDRD) Non-Af 99, BUN/Creatinine Ratio 14.0, Glucose 88, Calcium 8.0 L, Total Bilirubin 0.70, AST 15, ALT 19, Alkaline Phosphatase 54, Troponin I < 0.015, Total Protein 6.1 L, Albumin 3.2, Globulin 2.9, Albumin/Globulin Ratio 1.1, Triglycerides 70, Cholesterol 158, LDL Cholesterol 79, VLDL Cholesterol 14, HDL Cholesterol 65 Current Medications Acetaminophen (Tylenol) 650 mg PO Q6H PRN PRN PRN Reason: Pain Score 1-10/Temp > 100.7 F Al Hydroxide/Mg Hydroxide (Mylanta Ii) 30 ml PO Q6H PRN PRN PRN Reason: Gastric Burning Albuterol Sulfate (Ventolin Aerosols) 2.5 mg INHALATION Q2H PRN PRN PRN Reason: Dyspnea, wheezing Amlodipine Besylate (Norvasc) 5 mg PO DAILY [facility] Last Admin: 05/03/20 10:35 Dose: 5 mg Documented by: [facility] Last Admin: 05/03/20 05:35 Dose: 325 mg Documented by: Duloxetine HCl (Cymbalta) 60 mg PO DAILY [facility] Last Admin: 05/03/20 10:35 Dose: 60 mg Documented by: Enoxaparin Sodium (Lovenox) 40 mg SC DAILY [facility] Last Admin: 05/03/20 10:39 Dose: Not Given Documented by: Guaifenesin (Robitussin) 20 ml PO Q4H PRN PRN PRN Reason: COUGH Sodium Chloride () 250 mls @ 15 mls/hr IV .[id number] PRN PRN Reason: Saline Flush Sodium Chloride () 250 mls @ 15 mls/hr IV .[id number] PRN PRN Reason: Additional IVPB Infusion Magnesium Hydroxide (Milk Of Magnesia) 30 ml PO DAILY PRN PRN PRN Reason: Constipation Melatonin (Melatonin) 3 mg PO QHS PRN PRN PRN Reason: INSOMNIA Metoprolol Tartrate (Lopressor (Beta Soto)) 25 mg PO BID [facility] Last Admin: 05/03/20 10:35 Dose: 25 mg Documented by: Morphine Sulfate () 2 mg IV Q3H PRN PRN PRN Reason: Pain Score 6-10 Nitroglycerin (Nitrostat) 0.4 mg SUBLINGUAL Q5M PRN PRN Reason: CARDIAC/CHEST PAIN Ondansetron HCl (Zofran) 4 mg IV Q8H PRN PRN PRN Reason: NAUSEA/VOMITING Oxycodone HCl (Oxyir) 5 mg PO Q4H PRN PRN PRN Reason: Pain Score 4-5 Pantoprazole Sodium (Protonix) 40 mg PO DAILY [facility] Last Admin: 05/03/20 10:35 Dose: 40 mg Documented by: Prochlorperazine Edisylate (Compazine Iv) 5 mg IV Q4H PRN PRN PRN Reason: Breakthrough Nausea/Vomiting Psyllium Hydrophilic Mucilloid (Metamucil) 1 packet PO DAILY PRN PRN PRN Reason: Constipation Senna/Docusate Sodium (Senokot-S, Romina-Colace) 2 tablet PO BID PRN PRN PRN Reason: Constipation Sodium Chloride () 10 - 40 ml IV UD PRN PRN Reason: SALINE FLUSH Throat Lozenges (Cepacol Sore Throat Lozenge) 1 lozenge MUCOUS MEM Q2H PRN PRN PRN Reason: SORE THROAT Discharge Activity: Return to Normal Activity Weight Bearing Status: Weight bearing as tolerated Call your doctor if you observe: Fever of 101 or Higher, Numbness or Tingling, Change in Color, Inability to urinate, Inability to have a bowel movement, Using more than one pad per hour, Shortness of breath, Dizziness, Fainting spells, Swelling in the ankles, Chest pain, Prolonged hiccoughing, Increased palpitations (irregular heartbeat), Calf discomfort, Uncontrolled pain Home Medications: Medications to take at Discharge Amlodipine [Norvasc] 5 mg PO DAILY 05/02/20 Aspirin 325 mg PO DAILY 05/02/20 Atorvastatin Calcium [Lipitor] 20 mg PO QHS 05/02/20 Duloxetine HCl 60 mg PO DAILY 05/02/20 Metoprolol Tartrate 25 mg PO BID 05/02/20 Pantoprazole Sodium 40 mg PO DAILY 05/02/20 Primary Care Physician: Kayode Lin MD [Primary Care Provider] - Please follow up with your Primary Care Physician in: IN 2 WEEKS Medical Necessity - Tobacco Use Smoking Status: Never smoker Tobacco Use: Non-smoker Meaningful Use Info Meaningful Use Diagnoses (Choose all that apply): None applicable OBSV E&M: 11557 Observation care discharge
== END 2020-05-03 11:56 | disposition home or self-care (01) ==
LOC: ED 21:56 → PCU 22:24
PROVIDERS: Admitting Provider Family Medicine; Emergency Provider Emergency Medicine; PCP Family Medicine; Visit Provider Internal Medicine
DX: R07.89 Other chest pain (principal); Z23 Encounter for immunization; I10 Essential (primary) hypertension; K21.9 Gastro-esophageal reflux disease without esophagitis; J45.909 Unspecified asthma, uncomplicated; F41.9 Anxiety disorder, unspecified; F32.9 Major depressive disorder, single episode, unspecified; R47.9 Unspecified speech disturbances; H91.93 Unspecified hearing loss, bilateral; Z86.73 Personal history of transient ischemic attack (TIA), and cerebral infarction without residual deficits; Z79.899 Other long term (current) drug therapy; Z79.82 Long term (current) use of aspirin; E78.5 Hyperlipidemia, unspecified; R94.31 Abnormal electrocardiogram [ECG] [EKG]; R00.1 Bradycardia, unspecified
CPT/HCPCS: 36415; 71045; 71275; 78452; 80048; 80053; 80061; 83735; 84484; 85025; 85379; 93005; 93017; 96360; 96361; 99218; 99251; 99285; A9500; J7030; Q9967; 90686; A4216; G0378; G0463

== ENCOUNTER 2020-09-30 06:48 | Outpatient (RCR) | payer BC, SELFPAY ==
[2020-05-02 23:06] VITALS: BMI 26.5
[2020-09-30] MEDS: COVID-19 VACC, MRNA(PFIZER)/PF 30 MCG/0.3 ML SYRINGE IM (15:56)
[2020-10-21] MEDS: COVID-19 VACC, MRNA(PFIZER)/PF 30 MCG/0.3 ML SYRINGE IM (15:34)
== END 2020-09-30 23:59 ==
LOC: IMMUN 06:48
PROVIDERS: PCP Family Medicine; Referring Provider Family Medicine; Visit Provider Family Medicine
DX: Z23 Encounter for immunization (principal)
CPT/HCPCS: 0001A; 0002A; 91300

== ENCOUNTER → 2020-11-24 11:35 | Outpatient (CLI) | payer BC, SELFPAY ==
[2020-05-02 23:06] VITALS: BMI 26.5
[2020-11-24 15:33] LABS: Anion Gap 5 (5-15); BUN 13 mg/dL (7-18); BUN/Creat Ratio 15.2 RATIO (10-20); Chloride 106 mmol/L (98-107); Cholesterol 170 mg/dL (200); Creatinine, Serum 0.85 mg/dL (0.55-1.02); EST Glomerular Filtration Rate 71 mL/min (>60); Est Glom Filt Rate - Afr Amer 86 mL/min (>60); Glucose 90 mg/dL (74-106); High Density Lipoprotein 66 mg/dL; Potassium 4.2 mmol/L (3.5-5.1); Sodium Level 141 mmol/L (136-145); Triglycerides 88 mg/dL; Very Low Density Lipoprotein 18 mg/dL (5-40)
[2020-11-24 15:34] LABS: Erythrocyte Sedimentation Rate < 1 mm/hr (0-30)
== END ==
PROVIDERS: PCP Family Medicine; Referring Provider Family Medicine; Visit Provider Family Medicine
DX: I10 Essential (primary) hypertension (principal); M19.90 Unspecified osteoarthritis, unspecified site
CPT/HCPCS: 36415; 80048; 80061; 85652; 86141; 86431

== ENCOUNTER → 2021-04-27 07:56 | Outpatient (CLI) | payer BC, SELFPAY ==
--- NOTE | 2021-04-27 07:58 | BI_ITS ---
MAMMOGRAPHY - BILATERAL SCREENING 3-D TOMOSYNTHESIS REASON FOR EXAM: Female, 65 years old. SCREENING PERTINENT HISTORY: No significant family history. TECHNIQUE: 2-D mammograms and 3-D Tomosynthesis of the breast (s) were performed. CAD was performed. COMPARISON: 04/02/2020 FINDINGS: The breast composition is composed of scattered fibroglandular density. Scattered benign calcifications are seen. 1 cm oval obscured mass in the retroareolar right breast and focal compression views recommend for further evaluation. No dominant mass left breast. No suspicious calcifications.. No architectural distortion is identified. There is no skin thickening or retraction. BI/SCRN MAMM (CAD)W/PER BILAT IMPRESSION: 1 cm oval obscured mass in the retroareolar right breast and focal compression views recommended for further evaluation. ASSESSMENT CATEGORY: BIRADS Category 0: Incomplete. Need additional imaging evaluation as above. A letter regarding these results will be sent to the patient by the facility within 30 days. FOLLOW UP RECOMMENDATION: Additional imaging recommended as above. (E) Approximately 10% of breast cancers are not detected by mammography. A normal mammogram should not delay biopsy of a clinically suspicious abnormality. Electronically Signed: Dmitri Russell MD at 13:08 EDT Tel , Service support ,
== END ==
PROVIDERS: PCP Family Medicine; Visit Provider Family Medicine
DX: Z12.31 Encounter for screening mammogram for malignant neoplasm of breast (principal); N63.10 Unspecified lump in the right breast, unspecified quadrant
CPT/HCPCS: 77063; 77067

== ENCOUNTER → 2021-04-29 14:26 | Outpatient (CLI) | payer BC, SELFPAY ==
--- NOTE | 2021-04-29 14:27 | US_ITS ---
STUDY: ULTRASOUND BREAST - RIGHT REASON FOR EXAM: Female, 65 years old. Abnormal screening mammogram TECHNIQUE: Axial and longitudinal images of the RIGHT breast were performed with a high resolution ultrasound transducer. # OF IMAGES: 15 COMPARISON: Diagnostic mammogram earlier today, screening mammogram 04/27/2021 FINDINGS: RIGHT Breast: Heterogeneous background echotexture. Multiple longitudinal and transverse ultrasound images of the retroareolar right breast failed to demonstrate a discrete solid or cystic mass to correspond to the asymmetry seen on mammography.: US/Breast Complete Unilateral IMPRESSION: Normal right breast ultrasound. Short interval follow-up is recommended. CC and MLO mammograms with focal compression views of the right breast are recommended in 6 months. ASSESSMENT CATEGORY: BIRADS Category 3: Probably Benign - Short-Interval Follow-up Suggested. A letter regarding these results will be sent to the patient by the facility within 30 days. Electronically Signed: Dmitri Russell MD at 6:52 EDT Tel , Service support ,
--- NOTE | 2021-04-29 14:27 | BI_ITS ---
MAMMOGRAPHY - UNILATERAL DIAGNOSTIC: RIGHT BREAST REASON FOR EXAM: Female, 65 years old. MASS PERTINENT HISTORY: Non-contributory. TECHNIQUE: Digital examination. Mediolateral oblique (MLO) and craniocaudad (CC) views of the breast were obtained. CAD: CAD was not performed on this study. COMPARISON: 04/27/2021 FINDINGS: Breast Composition: There are scattered areas of fibroglandular density. Focal compression views confirm a 1 cm irregular indistinct low-density mass in the retroareolar right breast and ultrasound is recommended for further evaluation. No other significant abnormalities are identified. BI/DIAG MAMM W/CAD, UNILAT IMPRESSION: Further ultrasonographic evaluation recommended, as described above. ASSESSMENT CATEGORY: BIRADS Category 0: Incomplete. Need additional imaging evaluation. A letter regarding these results will be sent to the patient by the facility within 30 days. FOLLOW-UP RECOMMENDATION: Ultrasound recommended. (I) Approximately 10% of breast cancers are not detected by mammography. A normal mammogram should not delay biopsy of a clinically suspicious abnormality. Electronically Signed: Dmitri Russell MD at 15:18 EDT Tel , Service support ,
== END ==
PROVIDERS: PCP Family Medicine; Referring Provider Family Medicine; Visit Provider Family Medicine
DX: N63.10 Unspecified lump in the right breast, unspecified quadrant (principal)
CPT/HCPCS: 76641; 77065

== ENCOUNTER → 2021-11-10 | Outpatient (CLI) | payer BC, SELFPAY ==
--- NOTE | 2021-11-10 11:04 | BI_ITS ---
MAMMOGRAPHY - UNILATERAL DIAGNOSTIC: RIGHT BREAST REASON FOR EXAM: Female, 66 years old. 6 MO F/U RT PERTINENT HISTORY: Non-contributory. TECHNIQUE: Digital examination. Mediolateral oblique (MLO) and craniocaudad (CC) views of the breast were obtained. CAD: CAD was performed on this study. COMPARISON: 04/27/2021 FINDINGS: Breast Composition: There are scattered areas of fibroglandular density. The area of focal asymmetry in the retroareolar right breast appears less prominent than on the prior study. No other significant abnormalities are identified. BI/DIAG MAMM W/CAD, UNILAT IMPRESSION: Stable unilateral diagnostic mammogram. Repeat ultrasound is recommended. ASSESSMENT CATEGORY: BIRADS Category 0: Incomplete. Need additional imaging evaluation. A letter regarding these results will be sent to the patient by the facility within 30 days. FOLLOW-UP RECOMMENDATION: Ultrasound recommended. (I) Approximately 10% of breast cancers are not detected by mammography. A normal mammogram should not delay biopsy of a clinically suspicious abnormality. Electronically Signed: Dmitri Russell MD at 11:58 EDT ,
--- NOTE | 2021-11-10 11:10 | US_ITS ---
STUDY: ULTRASOUND BREAST - RIGHT REASON FOR EXAM: Female, 66 years old. Short interval follow-up TECHNIQUE: Axial and longitudinal images of the RIGHT breast were performed with a high resolution ultrasound transducer. # OF IMAGES: 16 COMPARISON: 04/29/2021 FINDINGS: RIGHT Breast: Heterogeneous background echotexture. Multiple longitudinal and transverse ultrasound images of the retroareolar right breast fail to demonstrate a discrete solid or cystic mass.: US/Breast Limited Unilateral IMPRESSION: Normal right breast ultrasound. Continued short interval follow-up is recommended. CC and MLO mammograms the right breast and a right breast ultrasound are recommended in 6 months. ASSESSMENT CATEGORY: BIRADS Category 3: Probably Benign - Short-Interval Follow-up Suggested. A letter regarding these results will be sent to the patient by the facility within 30 days. Electronically Signed: Dmitri Russell MD at 12:41 EDT ,
== END | disposition home or self-care (01) ==
PROVIDERS: PCP Family Medicine; Visit Provider Family Medicine
DX: R92.2 Inconclusive mammogram (principal)
CPT/HCPCS: 76642; 77061; 77065; G0279

== ENCOUNTER → 2021-12-02 | Outpatient (CLI) | payer BC, SELFPAY ==
[2021-12-02 12:46] LABS: Anion Gap 7 (5-15); BUN 14 mg/dL (7-18); BUN/Creat Ratio 16.9 RATIO (10-20); Chloride 107 mmol/L (98-107); Cholesterol 155 mg/dL (200); Creatinine, Serum 0.83 mg/dL (0.55-1.02); EST Glomerular Filtration Rate 73 mL/min (>60); Est Glom Filt Rate - Afr Amer 88 mL/min (>60); Glucose 106 mg/dL (74-106); High Density Lipoprotein 58 mg/dL; Potassium 3.6 mmol/L (3.5-5.1); Sodium Level 141 mmol/L (136-145); Triglycerides 67 mg/dL; Very Low Density Lipoprotein 13 mg/dL (5-40)
== END | disposition home or self-care (01) ==
LOC: MTLAB 10:50
PROVIDERS: PCP Family Medicine; Referring Provider Family Medicine; Visit Provider Family Medicine
DX: I10 Essential (primary) hypertension (principal)
CPT/HCPCS: 36415; 80048; 80061

== ENCOUNTER → 2023-06-13 | Outpatient (CLI) | payer BC, SELFPAY ==
[2023-06-13 12:53] LABS: Absolute Lymphocyte Count 1.42 X10^3/uL (0.83-4.51); Absolute Neutrophil Count 2.8 X10^3/uL (2.0-7.7); Basophil# 0.05 X10^3/uL; Eosinophil# 0.29 X10^3/uL; Eosinophils% 5.9 % (0-5); Hematocrit 43.3 % (37-47); Hemoglobin 14.3 g/dL (12.0-15.0); Lymphocyte # 1.42 X10^3/ul (0.83-4.51); Lymphocyte % 28.8 % (19-41); Mean Corpuscular Hgb 31.7 pg (27.0-32.0); Mean Platelet Vol. 10.6 fl (6.2-12.0); Monocyte# 0.39 X10^3/uL; Monocyte% 7.9 % (0-10); NRBC Flagged by Analyzer 0 % (0-5); Neutrophil # 2.77 X10^3/uL (2.7-7.7); Neutrophil % 56.2 % (47-70); Platelet Count 249 K/mm3 (150-450); RBC Distribution Width CV 13.2 % (11.6-14.6); RBC Distribution Width SD 47.1 fl (35.1-43.9); Red Blood Count 4.51 M/mm3 (4.2-5.4); White Blood Count 4.9 K/mm3 (4.4-11.0)
[2023-06-13 12:54] LABS: ALB/GLOB Ratio 1.1 RATIO (0.9-2.4); AST(SGOT) 20 U/L (15-37); Alanine Aminotransfer ALT/SGPT 29 U/L (13-56); Albumin, Serum 3.9 g/dL (3.2-5.0); Alkaline Phosphatase 64 U/L (45-117); Anion Gap 2 (5-15); BUN 19 mg/dL (7-18); Calcium,Total 9.1 mg/dL (8.5-10.1); Chloride 109 mmol/L (98-107); Cholesterol 147 mg/dL (200); EST Glomerular Filtration Rate 59 mL/min (>60); Est Glom Filt Rate - Afr Amer 71 mL/min (>60); Globulin 3.4 g/dL (2.2-4.2); Glucose 74 mg/dL (74-106); High Density Lipoprotein 73 mg/dL; Potassium 3.9 mmol/L (3.5-5.1); Protein, Total 7.3 g/dL (6.4-8.2); Sodium Level 141 mmol/L (136-145); Triglycerides 55 mg/dL; Very Low Density Lipoprotein 11 mg/dL (5-40)
== END | disposition home or self-care (01) ==
LOC: BIMLAB 10:03
PROVIDERS: PCP Internal Medicine; Visit Provider Internal Medicine
DX: I10 Essential (primary) hypertension (principal)
CPT/HCPCS: 36415; 80053; 80061; 85025

== ENCOUNTER → 2023-09-20 | Outpatient (CLI) | payer BC, SELFPAY ==
[2023-09-20 12:55] LABS: ALB/GLOB Ratio 1.1 RATIO (0.9-2.4); AST(SGOT) 19 U/L (15-37); Alanine Aminotransfer ALT/SGPT 21 U/L (13-56); Albumin, Serum 3.9 g/dL (3.2-5.0); Alkaline Phosphatase 68 U/L (45-117); Anion Gap 4 (5-15); BUN 14 mg/dL (7-18); Chloride 111 mmol/L (98-107); Cholesterol 155 mg/dL (200); Creatinine, Serum 0.87 mg/dL (0.55-1.02); EST Glomerular Filtration Rate 69 mL/min (>60); Est Glom Filt Rate - Afr Amer 83 mL/min (>60); Globulin 3.4 g/dL (2.2-4.2); Glucose 90 mg/dL (74-106); High Density Lipoprotein 73 mg/dL; Potassium 3.7 mmol/L (3.5-5.1); Protein, Total 7.3 g/dL (6.4-8.2); Sodium Level 143 mmol/L (136-145); Triglycerides 48 mg/dL; Very Low Density Lipoprotein 10 mg/dL (5-40)
== END | disposition home or self-care (01) ==
PROVIDERS: PCP Family Medicine; Referring Provider Family Medicine; Visit Provider Family Medicine
DX: I10 Essential (primary) hypertension (principal)
CPT/HCPCS: 36415; 80053; 80061

== ENCOUNTER 2023-12-13 12:33 | Emergency (ER) | payer BC, SELFPAY ==
[2023-12-13 12:34] VITALS: BP 107/79; PULSE 56; RESP 14; TEMP 36.8; O2SAT 97; BMI 28.2
--- NOTE | 2023-12-13 12:42 | CT_ITS ---
STUDY: CT ABDOMEN AND PELVIS WITHOUT CONTRAST REASON FOR EXAM: Female, 68 years old. LT FLANK PAIN, NAUSEA RADIATION DOSAGE (If Supplied By Facility): CTDIvol = ( 9.07 ) mGy, DLP = ( 396.36 ) mGycm TECHNIQUE: Transaxial images were obtained from the dome of the diaphragm to the symphysis pubis without oral contrast, and without intravenous contrast. Sagittal and coronal images were reconstructed. Individualized dose optimization techniques were used for this CT. COMPARISON: None. FINDINGS: The visualized lung bases are unremarkable. The visualized portions of the heart are within normal limits. Small simple cyst seen in the dome of the right lobe of the liver. Normal remaining aspects of the liver. Normal gallbladder and extrahepatic biliary system. Normal spleen. Normal pancreas. Normal bilateral adrenal glands. Right kidney: 2 less than 1 mm punctate stones are seen in the upper pole of the right kidney. No right hydronephrosis or hydroureter is present. Left kidney: Mild left hydronephrosis and proximal hydroureter with obstructing ureteral stone in the middle one third region measuring 4.7 mm in diameter. There are 4 additional punctate calyceal stones scattered throughout the left kidney with the largest stone measuring 3 mm in the midpole. Normal visualized stomach. Normal small intestine. Normal colon. The appendix is visualized and appears normal. There is diffuse atherosclerotic calcification of the abdominal aorta, without a demonstrated aneurysm. Normal inferior vena cava. Normal retroperitoneum. Normal urinary bladder. Unremarkable uterus and adnexa. Normal abdominal wall. There are diffuse degenerative changes of the visualized lumbar spine. CT/Abdomen/Pelvis without Cont IMPRESSION: 1. Mild left hydronephrosis and proximal hydroureter with obstructing ureteral stone in the middle one third region measuring 4.7 mm in diameter. There are 4 additional punctate calyceal stones scattered throughout the left kidney with the largest stone measuring 3 mm in the midpole. 2. Nonobstructing right kidney stones Electronically Signed: Tomi Bernal MD at 13:37 EDT ,
--- NOTE | 2023-12-13 12:44 | EX.ED.DYSGE1 ---
HPI <REED Enriquez - Last Filed: 12/13/23 14:06> History of Present Illness Chief Complaint: Flank Pain Narrative Narrative: Patient is a 68-year-old female with history of hypertension, GERD who presents to the emergency department with left flank pain. Patient states roughly around 8 AM this morning, she had some discomfort in her lower back on her left side. Patient states that the pain has been more severe, is now rating around her left abdomen. Patient states it feels she has have a bowel movement but cannot go. When she is finishing urinating she feels like she has more but she cannot urinate. She denies any fever or chills. She does state to have some nausea. Patient has never had anything like this before. PFS <REED Enriquez - Last Filed: 12/13/23 14:06> [facility] Medical History (Updated 12/13/23 @ 14:02 by REED Enriquez) Rheumatoid arthritis Osteopenia Hearing problem Cataracts, bilateral Breast lump Bone fracture Allergies Home Medications ?Medication ?Instructions ?Recorded ?Last Taken ?Type amlodipine 5 mg tablet 5 mg PO DAILY 05/02/20 05/02/20 09:00 History aspirin 325 mg tablet 325 mg PO DAILY 05/02/20 05/02/20 18:30 History atorvastatin 20 mg tablet 20 mg PO QHS 05/02/20 05/01/20 22:00 History duloxetine 60 mg capsule,delayed 60 mg PO DAILY 05/02/20 05/02/20 08:00 History release metoprolol tartrate 25 mg tablet 25 mg PO BID 05/02/20 05/02/20 08:00 History pantoprazole 40 mg tablet,delayed 40 mg PO DAILY 05/02/20 05/01/20 22:00 History release JOYA vaginal .EVERY OTHER DAY 06/13/23 Unknown History lisinopril 10 mg tablet mg PO 06/13/23 Unknown History cephalexin 500 mg capsule 500 mg PO BID 7 days #14 caps 12/13/23 Unknown Rx ondansetron 4 mg disintegrating 4 mg PO Q8H PRN PRN Nausea #10 tabs 12/13/23 Unknown Rx tablet oxycodone-acetaminophen 5 mg-325 1 tab PO Q8H PRN pain 3 days #10 12/13/23 Unknown Rx mg tablet (Percocet) tabs tamsulosin 0.4 mg capsule (Flomax) 0.4 mg PO DAILY #7 caps 12/13/23 Unknown Rx Allergy/AdvReac Type Severity Reaction Status Date / Time cat dander Allergy Mild sneezing Verified 12/13/23 12:34 Social History (Updated 06/13/23 @ 09:19 by Elaina Grajeda MA) Smoking Status: Never smoker second hand exposure: No alcohol intake: current alcohol intake frequency: a few times a week substance use type: does not use what type of physical activity do you participate in: walking frequency: 3-4 times per week do you feel safe at home: Yes ROS <REED Enriquez - Last Filed: 12/13/23 14:06> ROS ED ROS Narrative Constitutional: Negative for fever, chills, weight loss, weakness Eyes: Negative for vision loss, vision change, double vision ENT: Negative for any sore throat, ear pain, congestion Cardiovascular: Negative for any chest pain, tightness, palpitations Respiratory: Negative for any cough, sputum production, hemoptysis, dyspnea, dyspnea on exertion, orthopnea Gastrointestinal: Negative for any vomiting, diarrhea, constipation, blood in stool, blood in vomit. Positive for left flank pain, left lower abdominal pain : Negative for any urinary frequency, retention, blood in urine. Positive for dysuria Muscle skeletal: Negative for any neck pain, back pain Neurological: Negative for any headache, syncope, dizziness Skin: Negative for any rashes, itching, abrasions, lacerations Psychiatric: Negative for any depression, anxiety, stress, suicidal ideation, homicidal ideation Hematologic: Negative for any excessive bruising, easy bleeding EXAM <REED Enriquez - Last Filed: 12/13/23 14:06> Physical Exam Narrative Exam Narrative: Vital signs reviewed. Patient on my initial evaluation, patient was walking around the room, patient does appear to be slightly uncomfortable. HEET: Head normocephalic atraumatic, TMs clear bilaterally. Posterior pharynx is clear, moist mucous membranes. Nares clear bilaterally. Neck: Supple with no lymphadenopathy or tenderness. No signs of meningismus. Cardiac: Regular rate and rhythm no murmurs gallops or rubs, equal peripheral pulses bilaterally. Respiratory: Lungs clear to auscultation bilaterally. No chest tenderness. Abdomen: Soft, nontender, nondistended. No abdominal bruit or pulsatile masses. No hepatosplenomegaly Extremities: No peripheral edema, no signs of gross trauma or deformity. Active full range of motion of all extremities. Neuro: Cranial nerves II through XII intact, no focal neurological deficits. Skin: Clean dry and intact with no rash, purpura, petechiae, vesicles or pustules. Backs/flank: Positive for left-sided CVA tenderness no midline spinal tenderness, no deformity. Psych: Normal mood and affect. No SI, HI or acute psychosis. Const Vital Signs: 12/13/23 12:34 Temperature 98.3 F Temperature Source Temporal Pulse Rate 56 L Respiratory Rate 14 Blood Pressure 107/79 Blood Pressure Mean 88 Pulse Ox 97 Oxygen Delivery Method Room Air Positive well nourished and well developed General Appearance ED: well developed <Dr. Johny Trotter DO - Last Filed: 12/13/23 14:23> Physical Exam Const Vital Signs: 12/13/23 12:34 Temperature 98.3 F Temperature Source Temporal Pulse Rate 56 L Respiratory Rate 14 Blood Pressure 107/79 Blood Pressure Mean 88 Pulse Ox 97 Oxygen Delivery Method Room Air MDM <REED nEriquez - Last Filed: 12/13/23 14:06> [facility] Lab Data Labs: Laboratory Results - last 24 hr 12/13/23 12/13/23 12:55 13:37 WBC 5.8 RBC 4.49 Hgb 14.1 Hct 42.2 MCV 94.0 MCH 31.4 MCHC 33.4 RDW Std Deviation 44.1 H RDW Coeff of Radha 12.8 Plt Count 223 MPV 10.6 Immature Gran % (Auto) 0.200 Neut % (Auto) 54.8 Lymph % (Auto) 35.7 Green % (Auto) 6.2 Eos % (Auto) 2.4 Baso % (Auto) 0.7 Absolute Neuts (auto) 3.2 Absolute Lymphs (auto) 2.07 Nucleated RBC % 0 Sodium 140 Potassium 3.9 Chloride 109 H Carbon Dioxide 24.0 Anion Gap 7 BUN 21 H Creatinine 1.04 H Estim Creat Clear Calc 49.30 Est GFR (MDRD) Af Amer 68 Est GFR (MDRD) Non-Af 56 L BUN/Creatinine Ratio 20.2 H Glucose 127 H Calcium 9.2 Total Bilirubin 0.60 AST 18 ALT 23 Alkaline Phosphatase 63 Total Protein 7.0 Albumin 4.0 Globulin 3.0 Albumin/Globulin Ratio 1.3 Lipase 37 Urine Color Yellow Urine Clarity Clear Urine pH 6.5 Ur Specific Sutton 1.015 Urine Protein 100 H Urine Glucose (UA) Normal Urine Ketones Negative Urine Occult Blood 250 H Urine Nitrite Negative Urine Bilirubin 1 H Urine Urobilinogen 1 H Ur Leukocyte Esterase 100 H Urine RBC 25-50 SEEN Urine WBC 10-25 SEEN Ur Squamous Epith Cells 0-5 SEEN Urine Bacteria 1+ Urine Mucus 1+ Radiography Diagnostic Testing: Clinical Impression(s) from Imaging Studies Abdomen/Pelvis CT 12/13/23 12:42 IMPRESSION: 1. Mild left hydronephrosis and proximal hydroureter with obstructing ureteral stone in the middle one third region measuring 4.7 mm in diameter. There are 4 additional punctate calyceal stones scattered throughout the left kidney with the largest stone measuring 3 mm in the midpole. 2. Nonobstructing right kidney stones Electronically Signed: Tomi Bernal MD at 13:37 EDT Reading Location ID and State: [facility] / [place] , Service support , Treatment and Re-Evaluation :: Differential diagnosis includes however is not limited to: Lumbar strain, obstructing uropathy, pyelonephritis, UTI Patient is ambulating around the room while I am speaking to her, she does look uncomfortable with pain to the left flank that radiates to the left abdomen. Patient will receive a full workup, IV fluids, Zofran, morphine, Toradol. Patient will receive a CT scan of the abdomen pelvis without IV contrast. All radiologic examinations were read, reviewed by the emergency department attending. From these reads, a plan of care will be put in place. Patient's laboratory values show a normal CBC, patient's chemistries show slight elevation in creatinine of 1.04, baseline for her is 0.7-0.8. Glucose 127, patient's lipase was negative. Patient's urinalysis shows 1+ bacteria, 10-25 white blood cells, 100 leukocytes, 250 blood. At this time, this to be sent for culture, patient be placed on Keflex twice a day for 7 days. Patient be given Flomax, Zofran as well as Percocet. Patient structured to follow-up with urology. Patient was given strict return precaution to return for worsening back pain, fever chills nausea or vomiting. All questions answered, patient stable for discharge. <Dr. Johny Trotter, DO - Last Filed: 12/13/23 14:23> [facility] History & Record Review Discussion w/independent historian: Patient and Family Lab Data Attestation: I reviewed the patient's lab results. Labs: Laboratory Results - last 24 hr 12/13/23 12/13/23 12:55 13:37 WBC 5.8 RBC 4.49 Hgb 14.1 Hct 42.2 MCV 94.0 MCH 31.4 MCHC 33.4 RDW Std Deviation 44.1 H RDW Coeff of Radha 12.8 Plt Count 223 MPV 10.6 Immature Gran % (Auto) 0.200 Neut % (Auto) 54.8 Lymph % (Auto) 35.7 Green % (Auto) 6.2 Eos % (Auto) 2.4 Baso % (Auto) 0.7 Absolute Neuts (auto) 3.2 Absolute Lymphs (auto) 2.07 Nucleated RBC % 0 Sodium 140 Potassium 3.9 Chloride 109 H Carbon Dioxide 24.0 Anion Gap 7 BUN 21 H Creatinine 1.04 H Estim Creat Clear Calc 49.30 Est GFR (MDRD) Af Amer 68 Est GFR (MDRD) Non-Af 56 L BUN/Creatinine Ratio 20.2 H Glucose 127 H Calcium 9.2 Total Bilirubin 0.60 AST 18 ALT 23 Alkaline Phosphatase 63 Total Protein 7.0 Albumin 4.0 Globulin 3.0 Albumin/Globulin Ratio 1.3 Lipase 37 Urine Color Yellow Urine Clarity Clear Urine pH 6.5 Ur Specific Sutton 1.015 Urine Protein 100 H Urine Glucose (UA) Normal Urine Ketones Negative Urine Occult Blood 250 H Urine Nitrite Negative Urine Bilirubin 1 H Urine Urobilinogen 1 H Ur Leukocyte Esterase 100 H Urine RBC 25-50 SEEN Urine WBC 10-25 SEEN Ur Squamous Epith Cells 0-5 SEEN Urine Bacteria 1+ Urine Mucus 1+ Radiography Diagnostic Testing: Clinical Impression(s) from Imaging Studies Abdomen/Pelvis CT 12/13/23 12:42 IMPRESSION: 1. Mild left hydronephrosis and proximal hydroureter with obstructing ureteral stone in the middle one third region measuring 4.7 mm in diameter. There are 4 additional punctate calyceal stones scattered throughout the left kidney with the largest stone measuring 3 mm in the midpole. 2. Nonobstructing right kidney stones Electronically Signed: Tomi Bernal MD at 13:37 EDT Reading Location ID and State: [facility] / [place] , Service support , Treatment and Re-Evaluation :: Differential diagnosis includes however is not limited to: Lumbar strain, obstructing uropathy, pyelonephritis, UTI Patient is ambulating around the room while I am speaking to her, she does look uncomfortable with pain to the left flank that radiates to the left abdomen. Patient will receive a full workup, IV fluids, Zofran, morphine, Toradol. Patient will receive a CT scan of the abdomen pelvis without IV contrast. All radiologic examinations were read, reviewed by the emergency department attending. From these reads, a plan of care will be put in place. Patient's laboratory values show a normal CBC, patient's chemistries show slight elevation in creatinine of 1.04, baseline for her is 0.7-0.8. Glucose 127, patient's lipase was negative. Patient's urinalysis shows 1+ bacteria, 10-25 white blood cells, 100 leukocytes, 250 blood. At this time, this to be sent for culture, patient be placed on Keflex twice a day for 7 days. Patient be given Flomax, Zofran as well as Percocet. Patient structured to follow-up with urology. Patient was given strict return precaution to return for worsening back pain, fever chills nausea or vomiting. All questions answered, patient stable for discharge. I have personally performed a face to face assessment of the patient and have reviewed the MAKENZIE Note. I performed a substantive portion of the visit including all aspects of the following. My pat findings include: History is 68-year-old female with a sudden onset the left mid abdomen. Concern for kidney stone. No reported fevers. Exam is patient walking around the room. Abdomen soft nontender. Clinically appears benign Medical Decison Making normal white count creatinine 1.04. Urinalysis with 10-25 white cells 25-50 red cells 1+ bacteria. This will be sent for culture. She is nitrate negative. CT of the abdomen pelvis demonstrates a mid ureteral stone about 4.7 cm. Patient received pain medications and significantly improved. I spoke with the patient and her daughter at length. Patient will return if worsening pain or uncontrolled pain. She will follow-up with urology. Discharge Plan Triage Chief Complaint: Flank Pain ED Midlevel Provider: Kayode Thomason ED Provider: Johny Trotter Dx/Rx/DC Orders Clinical Impression: Kidney stone on left side Instructions: ED Kidney Stone with Pain Prescriptions: New tamsulosin [Flomax] 0.4 mg capsule 0.4 mg PO DAILY Qty: 7 0RF ondansetron 4 mg tablet,disintegrating 4 mg PO Q8H PRN PRN (Reason: Nausea) Qty: 10 0RF oxycodone-acetaminophen [Percocet] 5-325 mg tablet 1 tab PO Q8H PRN (Reason: pain) 3 Days Qty: 10 0RF cephalexin 500 mg capsule 500 mg PO BID 7 Days Qty: 14 0RF No Action lisinopril 10 mg tablet PO JOYA vaginal .EVERY OTHER DAY atorvastatin 20 MG tablet 20 mg PO QHS aspirin 325 MG tablet 325 mg PO DAILY amlodipine 5 MG tablet 5 mg PO DAILY pantoprazole 40 MG tablet,delayed release (DR/EC) 40 mg PO DAILY metoprolol tartrate 25 MG tablet 25 mg PO BID duloxetine 60 MG capsule,delayed release(DR/EC) 60 mg PO DAILY Primary Care Provider: Kayode Lin Referrals: Carter Le MD [Med Staff - Active Staff] - Kayode Lin MD [Primary Care Provider] - Activity Restrictions/Additional Instructions: Please return for worsening back pain, fever chills nausea or vomiting. Return for any worsening symptoms. Print Language: Prydeinig Disposition Disposition: Home, Self Care
[2023-12-13] MEDS: Ondansetron 4 MG/2 ML Vial IV (12:50)
[2023-12-13] MEDS: Ketorolac 15 MG/ML Vial IV (12:51)
[2023-12-13] MEDS: Morphine 4 MG/ML Syringe IV (12:53)
[2023-12-13] MEDS: 0.9% Normal Saline (1000mL) 1,000 ML 999 ML IV (12:54)
[2023-12-13 13:15] LABS: Absolute Lymphocyte Count 2.07 X10^3/uL (0.83-4.51); Absolute Neutrophil Count 3.2 X10^3/uL (2.0-7.7); Basophil# 0.04 X10^3/uL; Basophil% 0.7 % (0-1); Eosinophil# 0.14 X10^3/uL; Eosinophils% 2.4 % (0-5); Hematocrit 42.2 % (37-47); Hemoglobin 14.1 g/dL (12.0-15.0); Lymphocyte # 2.07 X10^3/ul (0.83-4.51); Lymphocyte % 35.7 % (19-41); Mean Corp Hgb Conc 33.4 g/dL (32-36); Mean Corpuscular Hgb 31.4 pg (27.0-32.0); Mean Platelet Vol. 10.6 fl (6.2-12.0); Monocyte# 0.36 X10^3/uL; Monocyte% 6.2 % (0-10); NRBC Flagged by Analyzer 0 % (0-5); Neutrophil # 3.18 X10^3/uL (2.7-7.7); Neutrophil % 54.8 % (47-70); Platelet Count 223 K/mm3 (150-450); RBC Distribution Width CV 12.8 % (11.6-14.6); RBC Distribution Width SD 44.1 fl (35.1-43.9); Red Blood Count 4.49 M/mm3 (4.2-5.4); White Blood Count 5.8 K/mm3 (4.4-11.0)
[2023-12-13 13:34] LABS: ALB/GLOB Ratio 1.3 RATIO (0.9-2.4); AST(SGOT) 18 U/L (15-37); Alanine Aminotransfer ALT/SGPT 23 U/L (13-56); Alkaline Phosphatase 63 U/L (45-117); Anion Gap 7 (5-15); BUN 21 mg/dL (7-18); BUN/Creat Ratio 20.2 RATIO (10-20); Calcium,Total 9.2 mg/dL (8.5-10.1); Chloride 109 mmol/L (98-107); Creatinine, Serum 1.04 mg/dL (0.55-1.02); EST Glomerular Filtration Rate 56 mL/min (>60); Est Glom Filt Rate - Afr Amer 68 mL/min (>60); Glucose 127 mg/dL (74-106); Lipase 37 U/L (13-75); Potassium 3.9 mmol/L (3.5-5.1); Sodium Level 140 mmol/L (136-145)
[2023-12-13 13:46] LABS: Color, Urine Yellow (Yellow); Glucose, Dipstick Normal (Normal); Ketone-Dipstick Negative (Negative); Leukocyte Esterase-Dipstick 100 /ul (Negative); Nitrite-Dipstick Negative (Negative); Occult Blood-Urine 250 /ul (Negative); Protein-Dipstick 100 mg/dl (Negative); Specific Gravity, Urine 1.015 (1.002-1.030); Urine Clarity Clear (Clear); Urine Urobilinogen 1 mg/dl (Normal); Urine pH 6.5 (5.0 - 8.0)
[2023-12-13 13:47] LABS: Urine Bilirubin Dipstick 1 mg/dL (Negative)
[2023-12-13 13:57] LABS: Bacteria 1+ /hpf (None Seen); Mucous, Urine 1+ /hpf (<or=2+); Red Blood Cells-Urine 25-50 SEEN /hpf (0-5); Squamous Epithelial Cells - UA 0-5 SEEN /hpf (5-10); White Blood Cells 10-25 SEEN /hpf (0-5)
[2023-12-13] MEDS: Cephalexin 250 MG Capsule 500 MG PO (14:15)
[2023-12-13 14:19] VITALS: BP 105/78; PULSE 61; RESP 17; TEMP 36.6; O2SAT 98
== END 2023-12-13 14:21 | disposition home or self-care (01) ==
PROVIDERS: Nurse Practitioner; Emergency Provider Emergency Medicine; PCP Family Medicine; Visit Provider Emergency Medicine
DX: N13.2 Hydronephrosis with renal and ureteral calculous obstruction (principal); I10 Essential (primary) hypertension; Z79.899 Other long term (current) drug therapy
CPT/HCPCS: 74176; 80053; 81001; 83690; 85025; 87086; 87088; 96361; 96374; 96375; 99284; J7030; J2405

== ENCOUNTER → 2024-03-17 | Outpatient (CLI) | payer BC, SELFPAY ==
[2024-03-17 12:53] LABS: Anion Gap 7 (5-15); BUN 18 mg/dL (7-18); BUN/Creat Ratio 21.2 RATIO (10-20); Calcium,Total 8.9 mg/dL (8.5-10.1); Chloride 108 mmol/L (98-107); Cholesterol 143 mg/dL (200); Creatinine, Serum 0.85 mg/dL (0.55-1.02); EST Glomerular Filtration Rate 71 mL/min (>60); Est Glom Filt Rate - Afr Amer 85 mL/min (>60); Glucose 86 mg/dL (74-106); High Density Lipoprotein 57 mg/dL; Potassium 3.5 mmol/L (3.5-5.1); Sodium Level 141 mmol/L (136-145); Triglycerides 52 mg/dL; Very Low Density Lipoprotein 10 mg/dL (5-40)
== END | disposition home or self-care (01) ==
LOC: MTLAB 09:43
PROVIDERS: PCP Family Medicine; Referring Provider Family Medicine; Visit Provider Family Medicine
DX: I10 Essential (primary) hypertension (principal)
CPT/HCPCS: 36415; 80048; 80061

== ENCOUNTER → 2024-09-17 | Outpatient (CLI) | payer BC, SELFPAY ==
[2024-09-17 12:54] LABS: Anion Gap 11 (5-15); BUN 14 mg/dL (4-19); BUN/Creat Ratio 15.9 RATIO (10-20); Calcium 9.1 mg/dL (7.6-11.0); Carbon Dioxide 25.2 mmol/L (22.0-29.0); Chloride 105 mmol/L (96-108); Cholesterol 143 mg/dL (<=200); Creatinine, Serum 0.9 mg/dL (0.6-1.0); EST Glomerular Filtration Rate 71 (>60); Glucose 103 mg/dL (70-99); High Density Lipoprotein 71 mg/dL; Low Density Lipoprotein Calc. 62 mg/dL; Potassium 4.4 mmol/L (3.3-5.1); Sodium Level 141 mmol/L (133-145); Triglycerides 47 mg/dL; Very Low Density Lipoprotein 9 mg/dL (5-40); cholesterol:hdl ratio screen 2.01
== END | disposition home or self-care (01) ==
LOC: MTLAB 09:50
PROVIDERS: PCP Family Medicine; Referring Provider Family Medicine; Visit Provider Family Medicine
DX: I10 Essential (primary) hypertension (principal)
CPT/HCPCS: 36415; 80048; 80061

== ENCOUNTER → 2025-03-18 | Outpatient (CLI) | payer BC, SELFPAY ==
[2025-03-18 13:06] LABS: Cholesterol 136 mg/dL (<=200); Low Density Lipoprotein Calc. 62 mg/dL; Triglycerides 55 mg/dL; Very Low Density Lipoprotein 11 mg/dL (5-40); cholesterol:hdl ratio screen 2.16
[2025-03-18 13:13] LABS: Hematocrit 44.0 % (37-47); Hemoglobin 14.7 g/dL (12.0-15.0); Immature Granulocytes Count 0.010 X10^3/uL (0.0-0.0); Mean Corp Hgb Conc 33.4 g/dL (32-36); Mean Corpuscular Volume 94.8 fL (81-99); Mean Platelet Vol. 10.9 fl (6.2-12.0); NRBC Flagged by Analyzer 0 % (0-5); Platelet Count 231 K/mm3 (150-450); RBC Distribution Width CV 13.1 % (11.6-14.6); RBC Distribution Width SD 44.9 fl (35.1-43.9); Red Blood Count 4.64 M/mm3 (4.2-5.4); White Blood Count 4.3 K/mm3 (4.4-11.0)
== END | disposition home or self-care (01) ==
LOC: MFPLAB 09:18
PROVIDERS: PCP Family Medicine; Referring Provider Family Medicine; Visit Provider Family Medicine
DX: I10 Essential (primary) hypertension (principal); R53.83 Other fatigue
CPT/HCPCS: 36415; 80061; 84443; 85025